=== PATIENT | female | born 1980 | race Two or more races ===

== ENCOUNTER 2017-07-29 11:26 | Outpatient (CLI) | payer OTHER ==
[~2017-07-29 11:26] MED LIST: PROGESTERONE50 MG/M1
== END 2017-07-29 17:18 | disposition home or self-care (01) ==
LOC: SONOGRAMA 11:26
DX: Z12.31 Encounter for screening mammogram for malignant neoplasm of breast (principal); N64.89 Other specified disorders of breast

== ENCOUNTER → 2018-08-12 | Outpatient (CLI) | payer OTHER | END | disposition home or self-care (01) | LOC: MAMO-SONO 11:15 | DX: N60.11 Diffuse cystic mastopathy of right breast (principal); N60.12 Diffuse cystic mastopathy of left breast; Z12.31 Encounter for screening mammogram for malignant neoplasm of breast ==

== ENCOUNTER 2020-05-31 07:09 | Outpatient (CLI) | payer OTHER | END 2020-05-31 07:21 | disposition home or self-care (01) | LOC: TOM 07:09 | PROVIDERS: ATTEND Specialist | DX: K42.9 Umbilical hernia without obstruction or gangrene (principal); N83.292 Other ovarian cyst, left side; R10.2 Pelvic and perineal pain ==

== ENCOUNTER 2020-05-31 08:59 | Outpatient (CLI) | payer OTHER | END 2020-05-31 16:16 | disposition home or self-care (01) | LOC: LAB 08:59 | PROVIDERS: ATTEND Radiology Diagnostic Radiology | DX: R10.2 Pelvic and perineal pain (principal) ==

== ENCOUNTER 2022-01-09 10:18 | Outpatient (CLI) | payer OTHER | END 2022-01-09 10:30 | disposition home or self-care (01) | LOC: MAMO-SONO 10:18 | PROVIDERS: ATTEND Specialist | DX: Z12.31 Encounter for screening mammogram for malignant neoplasm of breast (principal); N63.0 Unspecified lump in unspecified breast ==

== ENCOUNTER 2023-04-03 08:39 | Outpatient (CLI) | payer OTHER | END 2023-04-03 09:00 | disposition home or self-care (01) | LOC: MAMO-SONO 08:39 | PROVIDERS: ATTEND General Practice | DX: N60.29 Fibroadenosis of unspecified breast (principal); R22.42 Localized swelling, mass and lump, left lower limb; Z12.31 Encounter for screening mammogram for malignant neoplasm of breast ==

== ENCOUNTER 2023-12-10 05:28 | Day surgery (SDC) | payer OTHER ==
[~2023-12-10] VITALS: Ht 162.6 cm; Wt 72.6 kg
[2023-12-10] MEDS ORDERED: LIDOCAINE HCL 1% 20ML VIAL IJ ONE ×2 (08:00)
[2023-12-10] MEDS ORDERED: CEFAZOLIN SODIUM 1,000 MG VIAL IV ONE (08:00)
[2023-12-10] MEDS ORDERED: LIDOCAINE HCL 1%/EPINEPHRINE 20ML VIAL IJ ONE (08:00)
== END 2023-12-10 10:55 | disposition home or self-care (01) ==
LOC: CIR.AMB 05:28
PROVIDERS: ATTEND Surgery
DX: D21.6 Benign neoplasm of connective and other soft tissue of trunk, unspecified (principal); D21.5 Benign neoplasm of connective and other soft tissue of pelvis; R22.9 Localized swelling, mass and lump, unspecified

== ENCOUNTER 2025-01-10 11:06 | Outpatient (CLI) | payer OTHER | END 2025-01-10 11:09 | disposition home or self-care (01) | LOC: MAMO-SONO 11:06 | PROVIDERS: ATTEND Specialist | DX: N63.0 Unspecified lump in unspecified breast (principal); Z12.31 Encounter for screening mammogram for malignant neoplasm of breast ==